=== PATIENT | female | born 1995 | race Asian ===

== ENCOUNTER 2020-08-11 13:38 | Inpatient (IN) | payer MEDICAID, OTHER ==
[~2020-08-11] VITALS: Ht 160 cm; Wt 84.4 kg
[2020-08-14 15:01] LABS: CLARITY URINE CLEAR (CLEAR); COLOR URINE YELLOW (YELLOW); KETONES URINE NEGATIVE (NEGATIVE); LEUKOCYTE ESTERASE URINE TRACE (NEGATIVE); NITRITE URINE NEGATIVE (NEGATIVE); OCCULT BLOOD URINE NEGATIVE (NEGATIVE); PH URINE 6.5 (4.5-8.0); PROTEIN URINE NEGATIVE (NEGATIVE); SPECIFIC GRAVITY URINE 1.012 (1.005-1.030); UROBILINOGEN URINE 0.2 E.U./dL (0.2-1.0)
[2020-08-14 15:21] LABS: BASOPHILS % 0.4 % (0.0-2.0); HEMATOCRIT. 30.6 % (36.0-48.0); HEMOGLOBIN. 9.9 g/dL (12.0-16.0); LYMPHOCYTES % 20.4 % (20.0-50.0); MEAN CORPUSCULAR HEMOGLOBIN 28.5 pg (28.0-32.0); MEAN CORPUSCULAR VOLUME 87.9 fL (81.0-99.0); MEAN PLATELET VOLUME 8.3 fl (7.4-10.4); MONOCYTES % 7.1 % (2.0-8.0); NEUTROPHILS % 71.1 % (40.0-76.0); PLATELET 315 x1000/uL (130-400); RED BLOOD CELL COUNT 3.48 mill/uL (4.2-5.4); RED CELL DISTRIBUTION WIDTH 19.2 % (11.6-14.6)
[2020-08-14 15:31] LABS: CANNABINOID URINE SCREEN NEGATIVE (NEGATIVE); INR 0.9; PARTIAL THROMBOPLASTIN TIME 27.9 sec (23.4-31.0); PHENCYCLIDINE URINE SCREEN NEGATIVE (NEGATIVE); PROTHROMBIN TIME 9.7 sec (9.6-11.0)
[2020-08-14 15:32] LABS: *AMPHETAMINES SCREEN URINE NEGATIVE (NEGATIVE); *BARBITURATES SCREEN URINE NEGATIVE (NEGATIVE); *BENZODIAZEPINES SCREEN URINE NEGATIVE (NEGATIVE); *COCAINE SCREEN URINE NEGATIVE (NEGATIVE); OPIATES URINE SCREEN NEGATIVE (NEGATIVE)
[2020-08-14 15:33] LABS: METHADONE URINE SCREEN NEGATIVE (NEGATIVE)
[2020-08-14] MEDS ORDERED: LIDOCAINE HCL 1% 20ML VIAL (Pyxis) INJ INFIL NR (16:30)
[2020-08-14] MEDS ORDERED: BUTORPHANOL TARTRATE 2 MG/ML VIAL IV PRN (16:30)
[2020-08-14] MEDS ORDERED: LIDOCAINE HCL 1% 20ML VIAL (Pyxis) INJ INFIL SCH (16:30)
[2020-08-14] MEDS: LACTATED RINGERS 1,000 ML IV SCH (16:44)
[2020-08-14] MEDS: DEXT 5%/LR + PITOCIN 20UNITS/L 1,000 ML IV SCH (16:53)
[2020-08-14 19:24] LABS: HEPATITIS B SURFACE ANTIGEN NEGATIVE
[2020-08-14] MEDS ORDERED: ROPIVACAINE HCL/PF EPIDURAL 200 ML EPI SCH (20:00)
[2020-08-15] MEDS: LACTATED RINGERS 1,000 ML IV SCH ×2 (00:40→02:10)
[2020-08-15] MEDS ORDERED: FENTANYL CITRATE/PF 50MCG/ML 2ML VIAL ONE (01:26)
[2020-08-15] MEDS ORDERED: ONDANSETRON HCL 4MG/2ML INJ IV NR (02:45)
[2020-08-15] MEDS: DEXT 5%/LR + PITOCIN 20UNITS/L 1,000 ML IV SCH (08:26)
[2020-08-15] MEDS ORDERED: METHYLERGONOVINE MALEATE 0.2 MG/ML ONE (08:30)
[2020-08-15] MEDS ORDERED: METHYLERGONOVINE MALEATE 0.2 MG/ML IM SCH (08:45)
[2020-08-15] MEDS ORDERED: DEXT 5%/LR + PITOCIN 20UNITS/L 1,000 ML IV SCH (09:45)
[2020-08-15] MEDS ORDERED: GLYCERIN/WITCH HAZEL LEAF MEDICATED PAD TOP PRN (09:45)
[2020-08-15] MEDS ORDERED: DIPHENHYDRAMINE 25MG CAPSULE PO PRN (09:45)
[2020-08-15] MEDS ORDERED: IBUPROFEN 400MG TABLET PO PRN (09:45)
[2020-08-15] MEDS ORDERED: BENZOCAINE/LANOLIN/ALOE VERA SPRAY TOP PRN (09:45)
[2020-08-15] MEDS ORDERED: BISACODYL 10MG SUPP PR PRN (09:45)
[2020-08-15] MEDS ORDERED: LANOLIN OINT 7GM TUBE TOP PRN (09:45)
[2020-08-15] MEDS ORDERED: HEMORRHOIDAL SUPP PR PRN (09:45)
[2020-08-15] MEDS: IBUPROFEN 800MG TABLET PO PRN ×2 (09:58→20:57)
[2020-08-15 10:30] VITALS: BP 107/64
[2020-08-15 11:00] VITALS: BP 112/59
[2020-08-15] MEDS: ACETAMINOPHEN WITH CODEINE 300/30MG TABLET PO PRN (13:14)
[2020-08-15] MEDS: MAGNESIUM/ALUMINUM HYDROXIDE/SIMETHICONE 30ML UDC PO SCH ×3 (13:14→20:57)
[2020-08-15] MEDS: SIMETHICONE 80MG TABLET CHEW PO SCH ×3 (13:14→20:57)
[2020-08-15 19:30] VITALS: BP 122/83
[2020-08-15] MEDS ORDERED: TETANUS, DIPHTHERIA, PERTUSSIS VAC/PF 0.5ML (>7YR OLD) IM ONE (20:00)
[2020-08-15] MEDS: DOCUSATE SODIUM 100MG CAPSULE PO SCH (20:57)
[2020-08-16 04:00] VITALS: BP 103/62
[2020-08-16] MEDS: IBUPROFEN 800MG TABLET PO PRN ×3 (05:04→20:41)
[2020-08-16 07:05] LABS: BASOPHILS % 0.4 % (0.0-2.0); EOSINOPHILS % 1.5 % (0.0-5.0); HEMATOCRIT. 25.3 % (36.0-48.0); HEMOGLOBIN. 8.4 g/dL (12.0-16.0); LYMPHOCYTES % 24.3 % (20.0-50.0); MEAN CORPUSCULAR HEMOGLOBIN 28.5 pg (28.0-32.0); MEAN CORPUSCULAR VOLUME 85.6 fL (81.0-99.0); MEAN PLATELET VOLUME 8.2 fl (7.4-10.4); MONOCYTES % 6.6 % (2.0-8.0); NEUTROPHILS % 67.2 % (40.0-76.0); PLATELET 236 x1000/uL (130-400); RED BLOOD CELL COUNT 2.96 mill/uL (4.2-5.4); RED CELL DISTRIBUTION WIDTH 19.3 % (11.6-14.6)
[2020-08-16 07:35] VITALS: BP 104/60
[2020-08-16] MEDS: MAGNESIUM/ALUMINUM HYDROXIDE/SIMETHICONE 30ML UDC PO SCH ×4 (08:22→20:41)
[2020-08-16] MEDS: SIMETHICONE 80MG TABLET CHEW PO SCH ×4 (08:22→20:41)
[2020-08-16] MEDS: FERROUS SULFATE 325MG TABLET PO SCH ×3 (08:23→17:49)
[2020-08-16] MEDS: ACETAMINOPHEN WITH CODEINE 300/30MG TABLET PO PRN (08:42)
[2020-08-16] MEDS ORDERED: PRENATAL VIT/FE FUMARATE/FA TABLET PO SCH (09:00)
[2020-08-16 16:20] VITALS: BP 113/63
[2020-08-16 20:00] VITALS: BP 116/74
[2020-08-16] MEDS: DOCUSATE SODIUM 100MG CAPSULE PO SCH (20:41)
[2020-08-17] MEDS: IBUPROFEN 800MG TABLET PO PRN (03:57)
[2020-08-17 04:00] VITALS: BP 123/69
[2020-08-17 08:00] VITALS: BP 116/73
== END 2020-08-17 12:25 | disposition home or self-care (01) | DRG 560 ==
LOC: 8EST NSY 08-14 13:37 → OBSVTOIN 08-14 13:37 → 8 EST LDRP 08-14 13:51 → 8EST 08-15 10:34
PROVIDERS: ADMIT Obstetrics & Gynecology; ATTEND Obstetrics & Gynecology
PROC: 10E0XZZ Delivery of Products of Conception, External Approach (ICD-10-PCS; principal; 2020-08-14)
PROC: 3E0R3BZ Introduction of Anesthetic Agent into Spinal Canal, Percutaneous Approach (ICD-10-PCS; 2020-08-14)
PROC: 00HU33Z Insertion of Infusion Device into Spinal Canal, Percutaneous Approach (ICD-10-PCS; 2020-08-14)
DX: O80 Encounter for full-term uncomplicated delivery (principal); Z37.0 Single live birth; Z3A.40 40 weeks gestation of pregnancy
CPT/HCPCS: 36415; 76805; 76818; 80305; 81003; 85025; 86592; 86703; 86762; 86850; 86900; 87340; 90715; 99281; J2210; J2405; J2590; J2795; J3010; J7120; A4315